=== PATIENT | female | born 1960 | race Caucasian/White ===

== ENCOUNTER 2018-03-06 12:43 | Emergency (ER) | payer MEDICARE, MEDICAID ==
[~2018-03-06] VITALS: Ht 157.5 cm; Wt 72.6 kg
[~2018-03-06 12:43] MED LIST: BENTYL20 MG PO; CARDIZEM CD120 MG PO; CLONAZEPAM 0.50.5 M1; CREON 20 EC CA497 MG; MEDROLDOSEPACK PO; NEXIUM40 MG; PERCOCET 5-3251 EACH; POLYETHYLENE; PRILOSEC 20 MG20 MG PO; RISPERDAL0.5 MG; SEROQUEL 100 M100 M2 PO; TRAMADOL 50 MG50 MG PO; TRAMADOL-ACETA1 EACH; XANAX 0.25 MG0.25 MG PO
[2018-03-06] MEDS ORDERED: DEXILANT30 MG PO (13:06)
[2018-03-06] MEDS ORDERED: NORCO 5-325 TA1 EACH PO (13:55)
[2018-03-06] MEDS ORDERED: PERCOCET PO (14:02)
[2018-03-06 14:06] VITALS: BP 171/73
== END 2018-03-06 14:07 | disposition home or self-care (01) ==
LOC: M.ERS 12:43
DX: S22.31XA Fracture of one rib, right side, initial encounter for closed fracture (principal); K21.9 Gastro-esophageal reflux disease without esophagitis; F41.9 Anxiety disorder, unspecified; F32.9 Major depressive disorder, single episode, unspecified; Z90.49 Acquired absence of other specified parts of digestive tract; Z88.5 Allergy status to narcotic agent; Z88.6 Allergy status to analgesic agent; Z88.8 Allergy status to other drugs, medicaments and biological substances; X58.XXXA Exposure to other specified factors, initial encounter; Y93.89 Activity, other specified; Y92.89 Other specified places as the place of occurrence of the external cause; Y99.8 Other external cause status

== ENCOUNTER 2018-04-22 16:42 | Emergency (ER) | payer MEDICARE, MEDICAID ==
[~2018-04-22] VITALS: Ht 157.5 cm; Wt 72.6 kg
[~2018-04-22 16:42] MED LIST changes: +DEXILANT30 MG PO; +NORCO 5-325 TA1 EACH PO; +PERCOCET PO
[2018-04-22 17:04] LABS: URINE BILIRUBIN NEGATIVE (Negative); URINE BLOOD TRACE (Negative); URINE COLOR YELLOW; URINE GLUCOSE-RANDOM NEGATIVE (Negative); URINE KETONES NEGATIVE (Negative); URINE LEUKOCYTES-REFLEX NEGATIVE (Negative); URINE NITRITE-REFLEX NEGATIVE (Negative); URINE PROTEIN NEGATIVE (Negative); URINE UROBILINOGEN 0.2 E.U./dl (0.2-1.0)
[2018-04-22] MEDS ORDERED: UNICOMPLEX M TA1 TA1 PO (17:04)
[2018-04-22] MEDS ORDERED: LINZESS72 MCG PO (17:04)
[2018-04-22 17:06] LABS: URINE CLARITY CLEAR
[2018-04-22 17:24] LABS: ABSOLUTE BASOPHILS 0.1 thou/uL (0.0-0.2); ABSOLUTE EOSINOPHILS 0.2 thou/uL (0.0-0.7); ABSOLUTE LYMPHOCYTES 2.2 thou/uL (0.8-5.3); ABSOLUTE MONOCYTES 0.6 thou/uL (0.0-1.2); ABSOLUTE NEUTROPHILS 7.8 thou/uL (1.6-8.1); BASOPHILS 1.1 %; EOSINOPHILS 2.3 %; HEMATOCRIT 39.7 % (37.0-47.0); HEMOGLOBIN 13.3 gm/dL (12.0-15.0); MCH 30.9 pg (26.0-34.0); MCHC 33.6 g/dL (28.0-37.0); MONOCYTES 5.5 %; MPV 8.2 fl. (7.2-11.1); NUCLEATED RBCS 0 /100WBC; PLATELET COUNT* 328 thou/uL (150-400); POLYS 71.1 %; RBC 4.31 mil/uL (4.20-5.00)
[2018-04-22 17:33] LABS: CALCIUM 9.5 mg/dL (8.5-10.1); CREATININE 0.7 mg/dL (0.6-1.3); POTASSIUM 3.7 mmol/L (3.5-5.1)
[2018-04-22 17:38] LABS: TOTAL BILIRUBIN 0.5 mg/dL (<0.1-1.0); TOTAL PROTEIN 7.5 g/dL (6.4-8.2)
[2018-04-22 19:12] VITALS: BP 156/81
== END 2018-04-22 19:20 | disposition home or self-care (01) ==
LOC: M.ERS 16:42
PROVIDERS: Nurse Practitioner Family
DX: R10.31 Right lower quadrant pain (principal); K21.9 Gastro-esophageal reflux disease without esophagitis; F32.9 Major depressive disorder, single episode, unspecified; F41.9 Anxiety disorder, unspecified; Z88.5 Allergy status to narcotic agent; Z88.6 Allergy status to analgesic agent; Z88.8 Allergy status to other drugs, medicaments and biological substances; Z90.49 Acquired absence of other specified parts of digestive tract

== ENCOUNTER → 2019-02-04 | Outpatient (CLI) | payer MEDICARE, MEDICAID ==
[~2019-02-04] MED LIST changes: +LINZESS72 MCG PO; +UNICOMPLEX M TA1 TA1 PO
--- NOTE | 2019-02-04 13:43 | 2DMMODE ---
[place] [address] 2 D/M-MODE ECHOCARDIOGRAM Name: ANGEL MARTINEZ Room: [facility]#: [id number] Admission: 02/04/19 Attend Phys: Shady Saldana, Discharge: Date of : 58 Date of Service: 02/04/19 1342 Report #: [id number] THIS REPORT FOR: //name// APPROVED REPORT Study performed: 02/04/2019 12:55:01 EXAM: Comprehensive 2D, Doppler, and color-flow Echocardiogram Patient Location: Out-Patient BSA: 1.81 HR: 59 bpm BP: 126/72 mmHg Other Information Study Quality: Good Indications Palpitations 2D Dimensions IVSd: 12.30 (7-11mm) LVOT Diam: 20.40 (18-24mm) LVDd: 38.06 mm PWd: 9.52 (7-11mm) Ascending Ao: 29.17 (22-36mm) LVDs: 26.40 (25-40mm) Aortic Root: 24.00 mm Volumes Left Atrial Volume (Systole) LA ESV Index: 16.10 mL/m2 Aortic Valve AoV Peak Tapan.: 1.12 m/s AO Peak Gr.: 5.06 mmHg LVOT Max P.84 mmHg AO Mean Gr.: 2.50 mmHg LVOT Mean P.77 mmHg LVOT Max V: 0.98 m/s AO V2 VTI: 21.98 cm LVOT Mean V: 0.60 m/s IDALIA (VTI): 3.26 cm2 LVOT V1 VTI: 21.94 cm Mitral Valve E/A Ratio: 1.13 MV Decel. Time: 182.33 ms MV E Max Tapan.: 0.92 m/s MV PHT: 52.88 ms MVA (PHT): 4.16 cm2 [place] [address] 2 D/M-MODE ECHOCARDIOGRAM Name: ANGEL MARTINEZ Room: [facility]#: [id number] Admission: 02/04/19 Attend Phys: Shady Saldana, Discharge: Date of : 58 Date of Service: 02/04/19 1342 Report #: [id number] TDI E/Lateral E': 9.20 E/Medial E': 10.22 Medial E' Tapan.: 0.09 m/s Lateral E' Tapan.: 0.10 m/s Pulmonary Valve PV Peak Tapan.: 0.99 m/s PV Peak Gr.: 3.90 mmHg Tricuspid Valve RAP Estimate: 5.00 mmHg TR Peak Gr.: 18.30 mmHg RVSP: 23.30 mmHg PA Pressure: 23.30 mmHg Left Ventricle The left ventricle is normal size. There is normal LV segmental wall motion. There is normal left ventricular wall thickness. Left ventricular systolic function is normal. The left ventricular ejection fraction is within the normal range. LVEF is 60%. The left ventricular diastolic function is normal. Right Ventricle The right ventricle is normal size. The right ventricular systolic function is normal. Atria The left atrium size is normal. The right atrium size is normal. Aortic Valve The aortic valve is normal in structure. No aortic regurgitation is present. There is no aortic valvular stenosis. Mitral Valve The mitral valve is normal in structure. There is no mitral valve regurgitation noted. No evidence of mitral valve stenosis. Tricuspid Valve The tricuspid valve is normal in structure. Mild tricuspid regurgitation. Pulmonic Valve The pulmonary valve is normal in structure. Mild pulmonic regurgitation[place] [address] 2 D/M-MODE ECHOCARDIOGRAM Name: ANGEL MARTINEZ Room: [facility]#: [id number] Admission: 02/04/19 Attend Phys: Shady Saldana, Discharge: Date of : 58 Date of Service: 02/04/19 1342 Report #: [id number] The aortic root is normal in size. IVC is normal in size and collapses >50% with inspiration. Pericardium There is no pericardial effusion. <Conclusion> The left ventricle is normal size. There is normal left ventricular wall thickness. Left ventricular systolic function is normal. The left ventricular ejection fraction is within the normal range. LVEF is 60%. The right ventricle is normal size. The left atrium size is normal. The aortic valve is normal in structure. The mitral valve is normal in structure. The tricuspid valve is normal in structure. IVC is normal in size and collapses >50% with inspiration. There is no pericardial effusion. There is normal LV segmental wall motion. <ELECTRONICALLY SIGNED> By: Cam Vegas MD, FACC 02/04/19 1342 1342 134 aCm Vegas MD, FACC /INF
== END ==
LOC: M.CRD 12:22
DX: I08.8 Other rheumatic multiple valve diseases (principal); I47.1 Supraventricular tachycardia; Z88.5 Allergy status to narcotic agent; Z88.8 Allergy status to other drugs, medicaments and biological substances

== ENCOUNTER 2019-06-14 21:35 | Emergency (ER) | payer MEDICARE, MEDICAID ==
[~2019-06-14] VITALS: Ht 157.5 cm; Wt 79.4 kg
[2019-06-14] MEDS ORDERED: ZYPREXA 5 MG TAB5 M1 PO (21:41)
[2019-06-14] MEDS ORDERED: ACIPHEX 20 MG T20 MG PO (21:42)
[2019-06-14] MEDS ORDERED: TRAMADOL 50 MG50 MG PO (21:42)
[2019-06-14 22:03] LABS: ABSOLUTE BASOPHILS 0.1 thou/uL (0.0-0.2); ABSOLUTE EOSINOPHILS 0.1 thou/uL (0.0-0.7); ABSOLUTE MONOCYTES 1.3 thou/uL (0.0-1.2); BASOPHILS 0.6 %; EOSINOPHILS 0.7 %; HEMOGLOBIN 13.6 gm/dL (12.0-15.0); LYMPHOCYTES 10.2 %; MCHC 33.2 g/dL (28.0-37.0); MCV 93.4 fL (80.0-100.0); MONOCYTES 6.7 %; MPV 8.3 fl. (7.2-11.1); NUCLEATED RBCS 0 /100WBC; PLATELET COUNT* 316 thou/uL (150-400); POLYS 81.8 %; RBC 4.39 mil/uL (4.20-5.00); RDW-CV 13.2 % (10.5-14.5); WBC 19.6 thou/uL (4.0-11.0)
[2019-06-14 22:12] LABS: ANION GAP 9 mmol/L (7-16); BUN 14 mg/dL (7-18); CALCIUM 8.4 mg/dL (8.5-10.1); CHLORIDE 104 mmol/L (98-107); CO2 28 mmol/L (21-32); CREATININE 0.8 mg/dL (0.6-1.3); GLUCOSE 111 mg/dL (70-99); INR 0.9; POTASSIUM 3.7 mmol/L (3.5-5.1); PROTIME 9.7 Seconds (9.20-11.50); SODIUM 141 mmol/L (136-145)
[2019-06-14 22:24] LABS: ALBUMIN 3.9 g/dL (3.4-5.0); ALKALINE PHOSPHATASE 140 U/L (46-116); LIPASE 82 U/L (73-393); SGOT 17 U/L (15-37); SGPT 22 U/L (30-65); TOTAL BILIRUBIN 0.5 mg/dL (<0.1-1.0); TOTAL PROTEIN 7.3 g/dL (6.4-8.2); TROPONIN-I LEVEL <0.06 ng/mL (<0.06)
[2019-06-14 22:32] LABS: URINE BILIRUBIN NEGATIVE (Negative); URINE BLOOD NEGATIVE (Negative); URINE CLARITY CLEAR; URINE COLOR YELLOW; URINE GLUCOSE-RANDOM NEGATIVE (Negative); URINE KETONES NEGATIVE (Negative); URINE LEUKOCYTES-REFLEX NEGATIVE (Negative); URINE NITRITE-REFLEX NEGATIVE (Negative); URINE PROTEIN NEGATIVE (Negative); URINE UROBILINOGEN 0.2 E.U./dl (0.2-1.0)
[2019-06-15] MEDS ORDERED: COMPAZINE10 MG PO (00:14)
[2019-06-15] MEDS ORDERED: FLAGYL500 M1 PO (00:14)
[2019-06-15] MEDS ORDERED: ZOFRAN ODT4 MG PO (00:14)
[2019-06-15 00:27] VITALS: BP 133/79
== END 2019-06-15 00:27 | disposition home or self-care (01) ==
LOC: M.ERS 21:35
PROVIDERS: Emergency Medicine
DX: R11.2 Nausea with vomiting, unspecified (principal); R19.7 Diarrhea, unspecified; R10.13 Epigastric pain; K21.9 Gastro-esophageal reflux disease without esophagitis; Z90.710 Acquired absence of both cervix and uterus; Z90.49 Acquired absence of other specified parts of digestive tract; Z85.528 Personal history of other malignant neoplasm of kidney; Z90.5 Acquired absence of kidney; Z88.5 Allergy status to narcotic agent; Z88.6 Allergy status to analgesic agent; Z88.8 Allergy status to other drugs, medicaments and biological substances

== ENCOUNTER 2019-11-02 21:42 | Emergency (ER) | payer MEDICARE, MEDICAID ==
[~2019-11-02] VITALS: Ht 157.5 cm; Wt 81.2 kg
[~2019-11-02 21:42] MED LIST changes: +ACIPHEX 20 MG T20 MG PO; +COMPAZINE10 MG PO; +FLAGYL500 M1 PO; +ZOFRAN ODT4 MG PO; +ZYPREXA 5 MG TAB5 M1 PO
[2019-11-02] MEDS ORDERED: PROBIOSLIM (21:54)
[2019-11-02] MEDS ORDERED: ZANTAC 150MG T150 M1 PO (21:54)
[2019-11-02] MEDS ORDERED: HETLIOZ20 MG PO (21:55)
[2019-11-02] MEDS ORDERED: ASPERCREME1 EACH TOP (21:55)
[2019-11-02 22:09] LABS: ABSOLUTE BASOPHILS 0.2 thou/uL (0.0-0.2); ABSOLUTE EOSINOPHILS 0.3 thou/uL (0.0-0.7); ABSOLUTE LYMPHOCYTES 3.6 thou/uL (0.8-5.3); ABSOLUTE MONOCYTES 1.2 thou/uL (0.0-1.2); ABSOLUTE NEUTROPHILS 9.6 thou/uL (1.6-8.1); BASOPHILS 1.5 %; HEMATOCRIT 37.1 % (37.0-47.0); HEMOGLOBIN 12.5 gm/dL (12.0-15.0); LYMPHOCYTES 24.1 %; MCH 30.1 pg (26.0-34.0); MCHC 33.7 g/dL (28.0-37.0); MCV 89.2 fL (80.0-100.0); MPV 8.2 fl. (7.2-11.1); NUCLEATED RBCS 0 /100WBC; PLATELET COUNT* 319 thou/uL (150-400); POLYS 64.4 %; RBC 4.16 mil/uL (4.20-5.00); RDW-CV 13.5 % (10.5-14.5); WBC 14.9 thou/uL (4.0-11.0)
[2019-11-02 22:15] LABS: URINE BILIRUBIN NEGATIVE (Negative); URINE BLOOD NEGATIVE (Negative); URINE CLARITY CLEAR; URINE COLOR YELLOW; URINE GLUCOSE-RANDOM NEGATIVE (Negative); URINE KETONES NEGATIVE (Negative); URINE LEUKOCYTES-REFLEX NEGATIVE (Negative); URINE NITRITE-REFLEX NEGATIVE (Negative); URINE PROTEIN NEGATIVE (Negative); URINE UROBILINOGEN 0.2 E.U./dl (0.2-1.0)
[2019-11-02 22:25] LABS: CREATININE 1.1 mg/dL (0.6-1.3); POTASSIUM 4.5 mmol/L (3.5-5.1)
[2019-11-02 22:29] LABS: TOTAL BILIRUBIN 0.2 mg/dL (<0.1-1.0); TOTAL PROTEIN 6.8 g/dL (6.4-8.2)
[2019-11-03] MEDS ORDERED: REGLAN 10 MG TA10 MG PO (00:16)
[2019-11-03] MEDS ORDERED: PERCOCET 5-3251 EACH PO (00:16)
[2019-11-03 00:35] VITALS: BP 129/74
--- NOTE | 2019-11-03 10:37 | EKG ---
[place] [address] ELECTROCARDIOGRAM REPORT Name: ANGEL MARTINEZ Room: [facility]#: [id number] Admission: 11/02/19 Attend Phys: Discharge: 11/03/19 Date of : 58 Report #: [id number] THIS REPORT FOR: //name// [facility] ED Test Date: 2019-11-02 Test Time: 21:48:02 Pat Name: ANGEL MARTINEZ Department: Room: Gender: F Broom Handle Dipper: [place] : 1960 Requested By: Tami Colon Order Number: [id number] MD: Terry Lynch Measurements Intervals [place] Rate: 91 P: 75 OK: 186 QRS: 42 QRSD: 78 T: 52 QT: 345 QTc: 425 Interpretive Statements Sinus rhythm Compared to ECG 11/29/2016 21:21:03 No significant changes Electronically Signed On 11-03-2019 10:37:25 DIRECTOR [employer] by Terry Lynch [email or web address] <ELECTRONICALLY SIGNED> By: Nan Lynch MD, LOCATED WITHIN [facility] 11/03/19 1037 2148 47 Nan Lynch MD, FACC /EPI
== END 2019-11-03 00:35 | disposition home or self-care (01) ==
LOC: M.ERS 21:42
PROVIDERS: Emergency Medicine
DX: R10.13 Epigastric pain (principal); K21.9 Gastro-esophageal reflux disease without esophagitis; Z88.5 Allergy status to narcotic agent; Z88.6 Allergy status to analgesic agent; Z88.8 Allergy status to other drugs, medicaments and biological substances; Z90.710 Acquired absence of both cervix and uterus; Z90.49 Acquired absence of other specified parts of digestive tract; Z85.528 Personal history of other malignant neoplasm of kidney; Z90.5 Acquired absence of kidney

== ENCOUNTER 2019-11-12 15:48 | Inpatient (IN) | payer MEDICARE, MEDICAID ==
[~2019-11-12] VITALS: Ht 157.5 cm; Wt 79.4 kg
--- NOTE | ~2019-11-12 | PROC ---
[facility] [address] [place] [address] PROCEDURE REPORT Name: ANGEL MARTINEZ Room: [address] IN ..#: [id number] Admission: 11/12/19 Attend Phys: Zaria Ivey Discharge: Date of : 58 Report #: [id number] THIS REPORT FOR: //name// For GI report, please see the Provation report in Perceptive 7 content. By: 0639Medical Records Staff BERTIN /CONCHITA
--- NOTE | ~2019-11-12 | CON ---
[facility] [address] [place] [address] CONSULTATION Name: ANGEL MARTINEZ Room: [address] IN M.R.#: [id number] Admission: 11/12/19 Attend Phys: Zaria Ivey Discharge: Date of : 58 Report #: [id number] THIS REPORT FOR: //name// CC: JYOTI Mccray DICTATED BY: Jana Diaz [facility] Please note at the time of this dictation, the patient was seen and physically examined by myself. HISTORY OF PRESENT ILLNESS: This is a 59-year-old female who presented to the Emergency Room that she started having abdominal pain that wraps around into her back and nausea for 2 hours prior to her coming in. She does have a history of chronic pancreatitis she has been told. She initially was diagnosed with pancreatitis many years ago and was found to be gallstone related. She is not able to tell me when the last time she had an exacerbation of this at that time and she does not take any pancreatic enzymes either. The patient states she does have issues with acid reflux in which she takes Nexium and ranitidine for. She will have some breakthrough every couple of months and she will do some baking soda water to help with that. The patient states that sometimes when she eats red sauce, it may exacerbate or worsen some of her symptoms. She states that she has seen [facility] in the past and done upper and lower scopes. She cannot recall how long ago or what the findings were at that time and we will attempt to get those records for further recommendations. The patient denies any vomiting, no diarrhea, no constipation, fever or chills upon admission. ALLERGIES: INCLUDE ATIVAN, DEMEROL, VICODIN, CODEINE, BENADRYL, MORPHINE, TORADOL AND PHENERGAN. PAST MEDICAL HISTORY: GERD. She has had renal cancer. 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 PAST SURGICAL HISTORY: Partial right nephrectomy, cholecystectomy and hysterectomy. FAMILY HISTORY: Negative for any GI or female cancers. SOCIAL HISTORY: She does smoke 3/4 of a pack a day. Denies any alcohol or illegal drug use. REVIEW OF SYSTEMS: Twelve-point review of systems is essentially negative except what is mentioned in the HPI. PHYSICAL EXAMINATION: VITAL SIGNS: Temperature 36.6, pulse 69, respirations 17, [place] [address] CONSULTATION Name: ANGEL MARTINEZ Room: [address] IN [facility]#: [id number] Admission: 11/12/19 Attend Phys: Zaria Ivey Discharge: Date of : 58 Report #: [id number] 133/70. HEART: Regular rate and rhythm. LUNGS: Clear. ABDOMEN: Soft, positive bowel sounds in all 4 quadrants with some epigastric tenderness noted to palpation. LABORATORY DATA: Hemoglobin is 13.7, white count is 10.2, platelets 336. Her troponin is negative. Her lipase was only 110, total bilirubin 0.5, alkaline phosphatase 119, ALT 30, AST is 21. CT showed post-cholecystectomy, mild intrahepatic biliary dilatation noted, likely post-annmarie, small hiatal hernia and mild wall thickening of the gastric antrum and duodenum. IMPRESSION: 1. Abdominal pain, epigastric. 2. Nausea. 3. Gastroesophageal reflux disease. 4. Abnormal CT. 5. Elevated alkaline phosphatase. 6. History of pancreatitis related to gallstones in the past. 7. History of renal cell. PLAN: 1. EGD today with Dr. King. 2. We will obtain her records from [facility]. 3. Further recommendations to be made after the above has been noted. Thank you for allowing us to participate in this patient's care. Please do not hesitate to call with any questions in regard to this consult. By: 1059 0011Dain King MD /nt
[~2019-11-12 15:48] MED LIST changes: +ASPERCREME1 EACH TOP; +HETLIOZ20 MG PO; +PERCOCET 5-3251 EACH PO; +PROBIOSLIM; +QUETIAPINE FUM100 MG PO; +REGLAN 10 MG TA10 MG PO; -SEROQUEL 100 M100 M2 PO; +ZANTAC 150MG T150 M1 PO
[2019-11-12 16:00] VITALS: BP 164/75
[2019-11-12 16:13] LABS: URINE BILIRUBIN NEGATIVE (Negative); URINE BLOOD NEGATIVE (Negative); URINE CLARITY CLEAR; URINE COLOR YELLOW; URINE GLUCOSE-RANDOM NEGATIVE (Negative); URINE KETONES TRACE (Negative); URINE LEUKOCYTES-REFLEX NEGATIVE (Negative); URINE NITRITE-REFLEX NEGATIVE (Negative); URINE PROTEIN NEGATIVE (Negative); URINE SPECIFIC GRAVITY 1.025 (1.005-1.030)
[2019-11-12 16:35] LABS: ABSOLUTE BASOPHILS 0.1 thou/uL (0.0-0.2); ABSOLUTE EOSINOPHILS 0.3 thou/uL (0.0-0.7); ABSOLUTE LYMPHOCYTES 2.8 thou/uL (0.8-5.3); ABSOLUTE MONOCYTES 0.9 thou/uL (0.0-1.2); ABSOLUTE NEUTROPHILS 6.1 thou/uL (1.6-8.1); BASOPHILS 1.2 %; EOSINOPHILS 2.8 %; HEMATOCRIT 40.6 % (37.0-47.0); HEMOGLOBIN 13.7 gm/dL (12.0-15.0); LYMPHOCYTES 27.8 %; MCH 30.5 pg (26.0-34.0); MCHC 33.8 g/dL (28.0-37.0); MCV 90.2 fL (80.0-100.0); MONOCYTES 8.5 %; MPV 8.4 fl. (7.2-11.1); NUCLEATED RBCS 0 /100WBC; PLATELET COUNT* 336 thou/uL (150-400); POLYS 59.7 %; RBC 4.51 mil/uL (4.20-5.00); RDW-CV 13.5 % (10.5-14.5); WBC 10.2 thou/uL (4.0-11.0)
[2019-11-12 16:47] LABS: CREATININE 0.9 mg/dL (0.6-1.3); POTASSIUM 3.9 mmol/L (3.5-5.1)
[2019-11-12 16:49] LABS: ALBUMIN 3.9 g/dL (3.4-5.0); TOTAL BILIRUBIN 0.5 mg/dL (<0.1-1.0); TOTAL PROTEIN 7.3 g/dL (6.4-8.2)
[2019-11-12 20:24] VITALS: BP 139/78
[2019-11-12 20:30] VITALS: BP 149/78
[2019-11-12] MEDS ORDERED: OMEPRAZOLE20 M1 PO (21:29)
--- NOTE | 2019-11-13 05:38 | NUR ---
PATIENT ARRIVED ON FLOOR FROM THE ER AT ABOUT 2014. PATIENT ADMISSION HISTORY AND ASSESSMENT WAS COMPLETED CHARTED. IV FLUIDS WERE STARTED AT 100 ML/HR. PATIENT IS BLIND AND WAS INSTRUCTED TO CALL FOR HELP WHEN GETTING UP. BED ALARM REMAINS ON FOR PATIENT SAFETY. PATIENT WAS GIVEN PAIN AND NAUSEA MEDS TWICE SINCE ARRIVAL TO THE FLOOR. WILL CONTINUE TO MONITOR.
[2019-11-13 08:00] VITALS: BP 133/70
--- NOTE | 2019-11-13 10:00 | NUR ---
ASSUMED PT CARE AT 0800, AOX4, UP WITH ASSIST, O2 SAT AT 90'S RA. PT COMPLAINS OF ABDOMINAL PAIN. PAIN MEDS GIVEN PER MAR. IVF INFUSSING ORDERED. PT HAS GI CONSULT. PT FOR EDG. VSS, AM ASSESSMENT CHARTED, CALL LIGHT WITHIN REACH, HOURLY ROUNDING, BED ALARM, WILL CONTINUE TO MONITOR.
--- NOTE | 2019-11-13 10:20 | EKG ---
[place] [address] ELECTROCARDIOGRAM REPORT Name: ANGEL MARTINEZ Room: [address] ADM IN .R.#: [id number] Admission: 11/12/19 Attend Phys: Zaria Ivey Discharge: Date of : 58 Report #: [id number] THIS REPORT FOR: //name// [facility] ED Test Date: 2019-11-12 Test Time: 16:34:47 Pat Name: ANGEL MARTINEZ Department: Room: [facility] Gender: F Coal Washer: LINH : 1960 Requested By: Nannette Puri Order Number: [id number] MD: Obed Mujica Measurements Intervals [place] Rate: 69 P: 50 RI: 188 QRS: 26 QRSD: 79 T: 47 QT: 409 QTc: 438 Interpretive Statements Sinus rhythm artifact noted Low voltage, precordial leads Compared to ECG 11/02/2019 21:48:02 Low QRS voltage now present Electronically Signed On 11-13-2019 10:19:47 OSTEOPATHY DOCTOR by Obed Mujica [email or web address] <ELECTRONICALLY SIGNED> By: Obed Mujica MD, [facility] 11/13/19 1019 1634 1634 Obed Mujica MD, [facility] /EPI
[2019-11-13 16:24] VITALS: BP 136/68
[2019-11-14 02:08] VITALS: BP 117/54
--- NOTE | 2019-11-14 05:09 | NUR ---
PT ALERT AND ORIENTED X4. UP WITH ASSIST OF ONE. PT POLITE AND COOPERATIVE WITH CARES. C/O ABDOMINAL PAIN, PRN PAIN MEDICAITON X2 THIS SHIFT. PT HAS MACULAR DEGENERATION. CALL LIGHT IN REACH. BED ALARM ON FOR SAFETY. HOURLY ROUNDING IN PROGRESS, WILL CONTINUE TO MONITOR.
[2019-11-14 07:00] VITALS: BP 131/74
--- NOTE | 2019-11-14 09:14 | NUR ---
INITIAL ASSESSMENT COMPLETED CHARTED. VSS. REFER TO COMPUTER CHARTING FOR FURTHER DETAIL. HOURLY ROUNDING IN PLACE FOR PT SAFETY. CLWR.
[2019-11-14 11:30] VITALS: BP 131/74
[2019-11-14 17:02] VITALS: BP 150/76
--- NOTE | 2019-11-14 18:28 | NUR ---
THIS NURSE ASSUMED CARE OF THIS PT AT 1600. PT RESTS IN BED WITH CALL LIGHT IN REACH. PT ABLE TO USE CALL LIGHT TO MAKE NEEDS KNOWN. PT CHANGED TO CLEAR LIQUIDS FOR DINNER. PT REMAINS CONTINENT OF B/B. PT DENIES NAUSEA BUT REQUESTS PRN PAIN PILL. WILL CONTINUE TO MONITOR.
[2019-11-15] VITALS: BP 136/65
--- NOTE | 2019-11-15 04:39 | NUR ---
PATIENT SLEPT WELL DURING THIS SHIFT. PT UP AD JAYY TO BATHROOM. PT C/O PAIN AND RECEIVED FENTANYL 50MCG IV X2, ZOFRAN X1 AND TYLENOL FOR HEADACHE X1. PT SAID SHE IS WANTING TO GO HOME TODAY. PT DENIES NEEDS AT THIS TIME. FREQUENTLY USED ITEMS AND CALL LIGHT WITHIN REACH. WILL CONTINUE TO MONITOR.
[2019-11-15 08:00] VITALS: BP 149/80
[2019-11-15] MEDS ORDERED: ONDANSETRON HCL4 M2 PO (11:20)
[2019-11-15] MEDS ORDERED: PERCOCET PO (11:20)
--- NOTE | 2019-11-15 13:43 | NUR ---
PT A&OX4 VSS. IV TO LAC DC'D PRIOR TO PT LEAVING UNIT. PT UP AD JAYY, ASSIST NEEDED D/T VISUAL IMPAIRMENT. PT REMAINS FREE OF FALLS. PO PAIN MEDICATION ADMINISTERED DIRECTED. PT RESTS IN ROOM WITH CALL LIGHT IN REACH. PT USES CALL LIGHT TO MAKE NEEDS KNOWN. PT DRESSED INDEPENDENTLY FOR DC TO HOME.PT TOLERATES LIQUIDS ORDERED ANS ADVISED TO ADVANCE DIET TO REGULAR ADS TOLERATED. PT STATES UNDERSTANDING OF DC INSTRUCTIONS AND F/U RECOMMENDATIONS. PT AMB FROM UNIT WITH CAREGIVER, GAIT STEADY.
--- NOTE | 2019-11-19 11:07 | PATH ---
[address] [address] PATHOLOGY RPT PROCEDURE Name: SLOANE MARTINEZ Room: [address] IN .R.#: [id number] Admission: 11/12/19 Date of : 58 Discharge: 11/15/19 Report #: [id number] Path Case #: [id number] [facility] Accession Number: [id number] . 01 Material submitted: . stomach - GASTRIC BIOPSY . 01 Clinical history: . For H. pylori . 02 Diagnosis: Gastric biopsy: - Mild chronic gastritis suggesting reactive gastropathy (chemical gastritis), negative for Helicobacter pylori organisms and dysplasia. (SANDRA/db; 11/15/2019) LBQ 11/15/2019 1509 Local . 02 Comment: Special stain: H. pylori immuno . 02 Electronically signed: . Donovan Dimas MD, Pathologist NPI- [id number] . 01 Gross description: . The specimen is received in formalin, labeled "Sloane Martinez, gastric biopsy for H. pylori". Received are two segments of pale schmidt soft tissue ranging in size from 0.4 to 0.5 cm in maximum dimensions. The specimen is submitted entirely in cassette A1. (CAA; 11/14/2019) QAC/QAC 11/14/2019 0937 Local . 02 Pathologist provided ICD-10: K29.50 . 02 CPT . 123772, S67508 Specimen Comment: A courtesy copy of this report has been sent to [phone], [phone] Specimen Comment: [phone], Specimen Comment: Report sent to ,DR FORDE / DR MEJIA Performed at: [address], [place] [id number] MD Walter Molina MD Phone: [phone] Performed at: [address] [id number] [place] [address] PATHOLOGY RPT PROCEDURE Name: MICHELLESLOANEPAULINE APARICIO Room: [address] IN M.R.#: [id number] Admission: 11/12/19 Date of : 58 Discharge: 11/15/19 Report #: [id number] Path Case #: [id number] MD Donovan Dimas MD Phone: [phone]
== END 2019-11-15 14:12 | disposition home or self-care (01) | DRG 391 ==
LOC: M.ERS 15:48 → M.3W 18:23 → M.TBA-ER 18:23 → M.3W 20:14
PROVIDERS: Nurse Practitioner Family; ADMIT Internal Medicine
PROC: 0DB68ZX Excision of Stomach, Via Natural or Artificial Opening Endoscopic, Diagnostic (ICD-10-PCS; principal; 2019-11-13)
DX: K29.90 Gastroduodenitis, unspecified, without bleeding (principal); K85.90 Acute pancreatitis without necrosis or infection, unspecified; K86.1 Other chronic pancreatitis; F32.9 Major depressive disorder, single episode, unspecified; F17.210 Nicotine dependence, cigarettes, uncomplicated; K44.9 Diaphragmatic hernia without obstruction or gangrene; K21.9 Gastro-esophageal reflux disease without esophagitis; Z88.8 Allergy status to other drugs, medicaments and biological substances; Z85.528 Personal history of other malignant neoplasm of kidney; Z90.710 Acquired absence of both cervix and uterus; Z90.49 Acquired absence of other specified parts of digestive tract; Z90.5 Acquired absence of kidney

== ENCOUNTER → 2020-06-16 | Outpatient (CLI) | payer OTHER, MEDICAID ==
[~2020-06-16] MED LIST changes: +OMEPRAZOLE20 M1 PO; +ONDANSETRON HCL4 M2 PO
== END ==
LOC: M.RAD 14:41
PROVIDERS: ATTEND Family Medicine
DX: Z12.31 Encounter for screening mammogram for malignant neoplasm of breast (principal)